=== PATIENT | male | born 1965 | race American Indian/Alaskan Native ===

== ENCOUNTER 2019-12-29 14:03 | Emergency (ER) | payer OTHER ==
--- NOTE | 2019-12-29 14:22 | Emergency Department Report ---
Blank Doc - Documentation Documentation: 54-year-old male that presents with fever, cough, and SOB. Stated has taken m otrin. This initial assessment/diagnostic orders/clinical plan/treatment(s) is/are subject to change based on patient's health status, clinical progression and re- assessment by fellow clinical providers in the ED. Further treatment and workup at subsequent clinical providers discretion. Patient/guardians urged not to elope from the ED as their condition may be serious if not clinically assessed and managed. Initial orders include: 1- Patient sent to [facility] for further evaluation and treatment 2- CXR
--- NOTE | 2019-12-29 15:30 | XRay Report ---
CHEST 2 VIEWS INDICATION / CLINICAL INFORMATION: Cough, shortness of breath for 3 days. COMPARISON: None available. FINDINGS: SUPPORT DEVICES: None. HEART / MEDIASTINUM: No significant abnormality. LUNGS / PLEURA: No significant pulmonary or pleural abnormality. No pneumothorax. ADDITIONAL FINDINGS: No significant additional findings. IMPRESSION: 1. No acute abnormality of the chest. Signer Name: Justo Red MD Signed: 12/29/2019 3:26 PM Workstation Name: [id number]
--- NOTE | 2019-12-29 17:21 | Emergency Department Report ---
Minor Respiratory - HPI Chief Complaint: Upper Respiratory Infection Stated Complaint: FEVER/SOB Time Seen by Provider: 12/29/19 14:22 Duration: 4 Days Minor Respiratory: Yes Able to Tolerate Fluids, Yes Cough, No Rhinorrhea, No Sore Throat, No Sick Contacts, No Hemoptysis, No Chest Pain, No Shortness of Breath, No Fever Other History: 54-year-old male presents to the emergency room for cough headache fever and shortness of breath x3 to 4 days. [place] Patient admits to runny nose. Patient last took ibuprofen yesterday. Patient has not taken anything for his cough runny nose or headache. Patient denies any pain at this time. ED Review of Systems ROS: Stated complaint: FEVER/SOB Other details as noted in HPI Comment: All other systems reviewed and negative ED Past Medical Hx - Past Medical History Previous Medical History?: No - Surgical History Past Surgical History?: No - Social History Smoking Status: Never Smoker Substance Use Type: None Minor Respiratory Exam - Exam General: Vital signs noted. No distress. Alert and acting appropriately. HEENT: Yes Moist Mucous Membranes, No Pharyngeal Erythema, No Pharyngeal Exudates, No Rhinorrhea, No Conjuctival Injection, No Frontal Tenderness, No Maxillary Tenderness Ear: Neither TM Bulge, Neither TM Erythema, Neither EAC Pain, Neither EAC Discharge Neck: Yes Supple, No Adenopathy Lungs: Yes Good Air Exchange, No Wheezes, No Ronchi, No Stridor, No Cough, No Labored Respirations, No Retractions, No Use of Accessory Muscles, No Other Abnormal Lung Sounds Heart: Yes Regular, No Murmur Abdomen: Yes Normal Bowel Sounds, No Tenderness, No Peritoneal Signs Skin: No Rash, No Edema Neurologic: Alert and oriented, no deficits. Musculoskeletal: Unremarkable. ED Course Vital Signs 12/29/19 14:22 Temperature 98.2 F Pulse Rate 61 Respiratory 16 Rate Blood Pressure 184/90 O2 Sat by Pulse 99 Oximetry ED Medical Decision Making - Radiology Data Radiology results: report reviewed [facility] [address] [place] [address] XRay Report Signed Patient: MANDY BURNS MR#: [id number] : 1965 Acct:[id number] Age/Sex: 54 / M ADM Date: 12/29/19 Loc: ED Attending Dr: Ordering Physician: NATHAN DEAN NP Date of Service: 12/29/19 Procedure(s): XR chest routine 2V Accession Number(s): [id number] cc: NATHAN DEAN NP Fluoro Time In Minutes: CHEST 2 VIEWS INDICATION / CLINICAL INFORMATION: Cough, shortness of breath for 3 days. COMPARISON: None available. FINDINGS: SUPPORT DEVICES: None. HEART / MEDIASTINUM: No significant abnormality. LUNGS / PLEURA: No significant pulmonary or pleural abnormality. No pneumothorax. ADDITIONAL FINDINGS: No significant additional findings. IMPRESSION: 1. No acute abnormality of the chest. Signer Name: Justo Red MD Signed: 12/29/2019 3:26 PM Workstation Name: [id number] Transcribed By: [place] Dictated By: Justo Red MD Electronically Authenticated By: Justo Red MD Signed Date/Time: 12/29/191525 DD/ 25 TD/TT: - Medical Decision Making 54-year-old male presents to the emergency room for cough headache fever and shortness of breath x3 to 4 days. [place] Patient admits to runny nose. Patient last took ibuprofen yesterday. Patient has not taken anything for his cough runny nose or headache. Patient denies any pain at this time. Discussed with patient that he does not meet criteria for any testing for [place] at 21. I discussed with patient he has a common cold he can take [id number] Robitussin or Mucinex can continue with ibuprofen increase his fluid intake and follow-up at his primary care provider. Critical care attestation.: If time is entered above; I have spent that time in minutes in the direct care of this critically ill patient, excluding procedure time. ED Disposition Clinical Impression: Viral syndrome Disposition: DC-01 TO HOME OR SELFCARE Is pt being admited?: No Does the pt Need Aspirin: No Condition: Stable Instructions: Viral Syndrome (ED) Additional Instructions: Chest x-ray was negative for any acute findings. I discussed with patient he has a common cold he can take [id number] Robitussin or Mucinex can continue with ibuprofen increase his fluid intake and follow-up at his primary care provider. Referrals: PRIMARY CARE, [Primary Care Provider] - 3-5 Days Your,Primary Care Provider [Other] - 3-5 Days
[2019-12-29 17:28] VITALS: BP 171/86
== END 2019-12-29 17:26 | disposition home or self-care (01) ==
LOC: ED 14:03
DX: B34.9 Viral infection, unspecified (principal)
CPT/HCPCS: 71046; 99283